=== PATIENT | female | born 1975 | race African-American/Black ===

== ENCOUNTER 2018-07-18 14:33 | Outpatient (CLI) | payer OTHER, SELFPAY ==
--- NOTE | 2018-07-18 15:02 | MMO ---
Bilateral MAMMO Bilat Screen [facility]. CLINICAL HISTORY: Patient is 43 years old and is seen for screening. The patient has the following family history of breast cancer: paternal grandmother. VIEWS: The views performed were: bilateral craniocaudal with tomosynthesis and bilateral mediolateral oblique with tomosynthesis. FILMS COMPARED: The present examination has been compared to a prior imaging study performed at [facility] on 06/02/2016. MAMMOGRAM FINDINGS: The breasts are heterogeneously dense, which could obscure a lesion on mammography. There are no suspicious masses, suspicious calcifications, or new areas of architectural distortion. IMPRESSION: THERE IS NO MAMMOGRAPHIC EVIDENCE OF MALIGNANCY. A ROUTINE FOLLOW-UP MAMMOGRAM IN 1 YEAR IS RECOMMENDED. THE RESULTS OF THIS EXAM WERE SENT TO THE PATIENT. ACR BI-RADS Category 1 - Negative MAMMOGRAPHY NOTE: 1. A negative mammogram report should not delay a biopsy if a dominant of clinically suspicious mass is present. 2. Approximately 10% to 15% of breast cancers are not detected by mammography. 3. Adenosis and dense breasts may obscure an underlying neoplasm.
== END 2018-07-18 14:34 | disposition home or self-care (01) ==
LOC: BICMAMMO 14:33
PROVIDERS: ATTEND Family Medicine
DX: Z12.31 Encounter for screening mammogram for malignant neoplasm of breast (principal); Z80.3 Family history of malignant neoplasm of breast
CPT/HCPCS: 77063; 77067

== ENCOUNTER 2018-11-17 09:40 | Emergency (ER) | payer OTHER | END 2018-11-17 11:08 | disposition home or self-care (01) | LOC: ERS 09:40 | DX: M54.42 Lumbago with sciatica, left side (principal); I10 Essential (primary) hypertension | CPT/HCPCS: 99283 ==

== ENCOUNTER 2019-10-26 06:19 | Outpatient (CLI) | payer OTHER ==
[2019-10-26 11:25] LABS: BHCG - Serum Negative (NEGATIVE); Pregs Control Background? CLEAR/WHITE (CLR/WHITE); Pregs Control Bar Appear? YES (CONTROL BAR)
[2019-10-26 11:28] LABS: Hemoglobin 11.4 g/dL (12.0-16.0); Mean Corpuscular HGB CONC 30.9 g/dL (32.0-36.0); Mean Corpuscular Volume 80.9 fL (78.0-98.0); Mean Platelet Volume 7.7 fL (7.4-10.4); Platelet Count 356 thou/uL (130-400); RBC Distribution Width 13.9 % (11.5-14.5); Red Blood Cell (RBC) Count 4.54 mill/uL (4.20-5.40); White Blood Cell (WBC) Count 7.2 thou/uL (4.8-10.8)
[2019-10-27 12:07] LABS: SARS-CoV-2 MS2 Positive; SARS-CoV-2 N Gene Negative; SARS-CoV-2 S Gene Negative; SARS-CoV-2 by NAA Not Detected (NotDetected); SARS-CoV-2 orf1ab Negative
== END 2019-10-26 06:20 | disposition home or self-care (01) ==
LOC: LABBT 06:19
PROVIDERS: ATTEND Obstetrics & Gynecology
DX: Z01.812 Encounter for preprocedural laboratory examination (principal); Z11.59 Encounter for screening for other viral diseases; N92.0 Excessive and frequent menstruation with regular cycle; N94.6 Dysmenorrhea, unspecified
CPT/HCPCS: 84703; 85027; 86850; 86900; 86901; 87635; U0003

== ENCOUNTER 2019-10-31 05:41 | Day surgery (SDC) | payer OTHER ==
[2019-10-24 09:39] VITALS: BMI 35.8
[2019-10-31] MEDS ORDERED: Gabapentin 300 MG CAP ONE (06:05)
[2019-10-31] MEDS ORDERED: Famotidine/PF 20 mg/2ml Vial ONE (06:06)
[2019-10-31] MEDS ORDERED: CeleCOXIB 100 MG CAP ONE (06:06)
[2019-10-31] MEDS ORDERED: Lidocaine 1% w/Epinephrine 1:100K 20 ML VIAL ONE (06:40)
[2019-10-31] MEDS ORDERED: Bupivacaine PF 0.5% 30 ML VIAL ONE (06:40)
[2019-10-31] MEDS ORDERED: HYDROmorphone 0.5 MG/0.5 ML SYRINGE ONE (07:18)
[2019-10-31] MEDS ORDERED: Fentanyl 100 MCG/2 ML VIAL ONE ×2 (07:18→10:33)
[2019-10-31] MEDS ORDERED: HYDROmorphone 2 MG/ML VIAL SLOW IVP PRN (09:55)
[2019-10-31] MEDS ORDERED: Meperidine HCl/PF 25 MG/ML VIAL SLOW IVP PRN (09:55)
[2019-10-31] MEDS ORDERED: Promethazine HCl 25 MG/ML VIAL SLOW IVP PRN (09:55)
[2019-10-31] MEDS ORDERED: Ondansetron HCl/PF 4 MG/2 ML Vial IVP PRN (09:55)
[2019-10-31] MEDS ORDERED: Zolpidem Tartrate 5 MG TAB PO PRN (10:08)
[2019-10-31] MEDS ORDERED: Morphine 4 MG/ML VIAL SLOW IVP PRN (10:08)
[2019-10-31] MEDS ORDERED: HYDROcodone/Acetaminophen 5/325 mg Tablet PO PRN ×2 (10:08)
[2019-10-31] MEDS ORDERED: diphenhydrAMINE 25 MG CAP PO PRN (10:08)
[2019-10-31] MEDS ORDERED: Ondansetron PF 4 MG/2 ML Vial IVP PRN (10:08)
[2019-10-31] MEDS ORDERED: Simethicone Chewable 80 MG TAB PO PRN (10:08)
[2019-10-31] MEDS ORDERED: Promethazine HCl 25 MG/ML VIAL IM PRN (10:08)
[2019-10-31] MEDS ORDERED: Bisacodyl 10 MG SUPP PR PRN (10:08)
[2019-10-31] MEDS ORDERED: Ropivacaine HCl/PF 750 ML NERVE BLCK SCH (11:00)
[2019-10-31] MEDS ORDERED: Ropivacaine 0.2% 550 ML 750 ML NERVE BLCK SCH ×2 (11:00)
[2019-10-31] MEDS ORDERED: Dexamethasone 20 MG/5 ML VIAL ONE (11:19)
[2019-10-31] MEDS ORDERED: Rocuronium Bromide 10 MG/ML (10ML VIAL) ONE (11:19)
[2019-10-31] MEDS ORDERED: Lidocaine 1% PF 5 ML VIAL ONE (11:19)
[2019-10-31] MEDS ORDERED: EPHEDRINE 25 MG/5 ML SYRINGE ONE (11:19)
[2019-10-31] MEDS ORDERED: Ondansetron PF 4 MG/2 ML Vial ONE (11:19)
[2019-10-31] MEDS ORDERED: Glycopyrrolate 0.2 MG/ML 5 ML SYRINGE ONE (11:19)
[2019-10-31] MEDS ORDERED: PHENYLEPHRINE-NS 100 MCG/ML 10 ML SYRINGE ONE (11:19)
[2019-10-31] MEDS ORDERED: PROPOFOL 200 MG/20 ML VIAL ONE (11:19)
[2019-10-31 14:54] LABS: Mean Corpuscular HGB CONC 35.3 g/dL (32.0-36.0); Mean Corpuscular Hemoglobin 28.4 pg (27.0-31.0); Mean Corpuscular Volume 80.6 fL (78.0-98.0); Mean Platelet Volume 7.6 fL (7.4-10.4); Platelet Count 325 thou/uL (130-400); Red Blood Cell (RBC) Count 4.23 mill/uL (4.20-5.40); White Blood Cell (WBC) Count 15.3 thou/uL (4.8-10.8)
--- NOTE | 2019-10-31 16:18 | OP ---
DATE OF PROCEDURE: 10/31/2019 PREOPERATIVE DIAGNOSES: 1. Menorrhagia. 2. Dysmenorrhea. 3. Failed medical management. POSTOPERATIVE DIAGNOSES: 1. Menorrhagia. 2. Dysmenorrhea. 3. Failed medical management. PROCEDURE PERFORMED: 1. Robotic-assist total laparoscopic hysterectomy with bilateral salpingectomy. 2. ON-Q pump placement. MARINE SERVICES TECHNICIAN: Jerica Barber PA-C. ANESTHESIA: GETA. URINE OUTPUT: At the start of the case, 500 mL. COMPLICATIONS: None. OPERATIVE FINDINGS: 1. Enlarged uterus with normal fallopian tubes and ovaries bilaterally. 2. Omental adhesions adhered to the anterior abdominal wall. 3. Small nonexpanding hematoma noted at the retroperitoneum medial to the descending colon. 4. Surgical sites hemostatic. PROCEDURE IN DETAIL: The patient was taken back to the OR with IV fluids running. Once she was in the OR, general anesthesia was obtained. Once the patient was asleep, she was placed in low dorsal lithotomy position. The abdomen and vagina were prepped and draped in normal fashion for gynecologic laparoscopy. The surgeons were gowned and gloved after the patient was draped. A Vazquez catheter was placed and the bladder was drained, approximately 500 mL of urine. A Alyssa syringe was placed to the tip of the catheter. An operative speculum was placed in the vagina. The cervix was easily grasped with a single-tooth tenaculum and sounded to 9 cm. A Centro manipulator was assembled with an 8 cm tip and a 4-cm cup and placed into the uterus and vagina in routine fashion for manipulation during the case. Surgeon's gloves were then changed after the speculum was removed and attention was turned to the laparoscopic portion of the case. Beginning approximately 2 cm above the umbilicus, local anesthesia was injected underneath the skin. After the skin incision was made with a scalpel, a Veress needle was placed through the skin incision and the abdomen was insufflated without difficulty. After the abdomen was insufflated, the Veress needle was removed and a 12-mm Optiview trocar was placed into the distended abdominal cavity. A laparoscope was then placed through the incision and the patient was placed in Trendelenburg position. Omental adhesions were noted draping from the midline to the left side of midline at the level of the umbilicus. No bowel was noted within these omental adhesions. The left and right lower quadrant and right upper quadrant trocar sites were placed in similar fashion after placing local anesthesia underneath the skin, making small incisions and placing the trocars under direct visualization. The omental adhesions were gently manipulated to allow for direct visualization and placement of the left lower quadrant trocar. During the manipulation of the bowel and omentum, a superficial injury to the retroperitoneum was noted and closely inspected. This area was to the left of midline above the iliac crest and above the descending colon. Dr. Sheppard was available and came in, reviewed the laparoscopic images and no injury to the bowel suspected, but a small retroperitoneum hematoma that was nonexpanding was noted. The superficial injury to the peritoneum suspected to be caused by using the Veress needle and was an inherent risk to surgery. After the area of concern was observed for a period of time without any changes, the procedure continued with placement of the robotic arms through the trocars under direct visualization. Approximately next 10 to 15 minutes of the case were used to dissect the omental adhesions off the anterior abdominal wall. Small areas of bleeding were encountered during removal of the omental adhesions and were controlled with monopolar and bipolar cautery. Once the lesions were taken down, the pelvis could be more easily viewed. Attention was turned to the laparoscopic portion of the case. Beginning at the left fallopian tube, left fallopian tube was grasped, elevated away from the pelvic sidewall, cauterized, transected, and removed from the surgical field. The left utero-ovarian ligament was cauterized and transected as well as the round ligament on the left side. The left round ligament was transected and divided into anterior and posterior leaf. This allowed the left ovary to fall away to the pelvic sidewall. The ureter was noted to be away from the planned areas of dissection. Anterior and posterior leaf of the round ligament were dissected down towards the level of the uterine artery. The bladder flap was created by further dissecting the anterior aspect of the ligament away from the cervix and dissecting the vesicocervical fascia in layers away from the planned colpotomy site. After the uterine arteries were skeletonized and cauterized on the patient's left side, attention was turned to the contralateral side. The right fallopian tube was elevated, transected, and removed. The right utero-ovarian ligament was cauterized and transected. The round ligament on the patient's left side was cauterized, transected, and divided into anterior and posterior leaf. The ureter on the patient's right side was also noted to be away from the areas of planned dissection. The anterior leaf was taken down towards the level of the cervix and the bladder was further dissected away from the planned colpotomy site. The uterine artery on the patient's right side was cauterized and transected. The colpotomy began posteriorly and was completed circumferentially. The uterine specimen was then retracted into vagina and removed. After pneumoperitoneum was re-established, the vaginal cuff and surgical pedicles were copiously irrigated and suctioned dry. The bladder was backfilled. No areas of bladder injury were suspected. The vaginal cuff was inspected and any small areas of bleeding were controlled with Bovie cauterization. The vaginal cuff was reapproximated with Stratafix suture from corner to corner. After the vaginal cuff closure was completed, the pressure was dropped down to 6 mmHg with no areas of bleeding noted. The ON-Q catheter tip was then placed under direct visualization through the anterior abdominal wall and placed into the pelvis. It was then primed and noted to be working well. Attention was then turned back to the left side of the abdomen above the pelvic brim where the hematoma was reinspected and no areas of expansion were noted. The omentum was irrigated and dried. No active areas of bleeding were noted. The robotic arms were released from the trocars. As a surgeon, I moved back to the patient's bedside after re-gowning and gloving. With the laparoscope, we closely inspected the omentum, the retroperitoneum on the patient's left side, and the pelvis and no areas of bleeding noted. A layer of Tisseel was applied over the omental edges as well as the area of suspected injury from the Veress needle. Of note, prior to application of the Tisseel, no bleeding was noted. All instruments were then removed. The counts were correct. The gas was released from the abdomen. The supraumbilical port site was closed at the fascial layer with Vicryl suture. All 4 skin incisions were closed with Monocryl suture and dressed with Dermabond dressing. The vagina was inspected with no bleeding noted. The patient was cleaned, dried, and taken out of lithotomy position. She was extubated and transferred to the recovery room in good condition. The counts were correct. The patient tolerated the procedure well. Job ID: [id number]
[2019-10-31] MEDS: Ketorolac Tromethamine 30 MG/ML VIAL IVP SCH ×2 (17:58→19:05)
[2019-11-01] MEDS: Ketorolac Tromethamine 30 MG/ML VIAL IVP SCH (00:30)
[2019-11-01] MEDS: Sodium Chloride 0.9% 1,000 ML IV SCH ×2 (02:15→06:45)
[2019-11-01] MEDS ORDERED: Ibuprofen 800 MG TAB PO SCH (06:00)
[2019-11-01 06:27] LABS: Hemoglobin 10.2 g/dL (12.0-16.0); Mean Corpuscular HGB CONC 33.5 g/dL (32.0-36.0); Mean Corpuscular Hemoglobin 26.9 pg (27.0-31.0); Mean Corpuscular Volume 80.2 fL (78.0-98.0); Mean Platelet Volume 7.6 fL (7.4-10.4); Platelet Count 305 thou/uL (130-400); RBC Distribution Width 14.1 % (11.5-14.5); Red Blood Cell (RBC) Count 3.81 mill/uL (4.20-5.40); White Blood Cell (WBC) Count 17.9 thou/uL (4.8-10.8)
[2019-11-01 08:06] VITALS: BP 110/55; TEMP 98.3
--- NOTE | 2019-11-01 08:06 | PDOC.EVN ---
Event Note - Event Note Event Note: POD1 S: doing well, minimal pain, mostly w ambulation, voiding well, no bleeding, pain controlled w meds, no NV and burping but not yet passing gas. O: VS WNL NAD A and O Nonlabored breathing mild but anticipated post op distention, NTTP, incisions CDI x 4 Audra dry A/p: POD1 sp JOHANN BS w ONQ pump placement. Reviewed w pt how she can adjust the OnQ rate up or down at home. Encouraged ambulation and plan for DC later today. Surgical findings reviewed w pt.
[2019-11-01] MEDS ORDERED: Bisoprolol Fumarate/HCTZ 10 mg/6.25 mg Tablet PO SCH (09:00)
[2019-11-01] MEDS ORDERED: Amlodipine 5 MG TAB PO SCH (09:00)
== END 2019-11-01 09:50 | disposition home or self-care (01) ==
LOC: SDC 05:41 → 3SE 10:06 → SDC 11-01 09:50
PROVIDERS: ATTEND Obstetrics & Gynecology
PROC: 0UT74ZZ Resection of Bilateral Fallopian Tubes, Percutaneous Endoscopic Approach (ICD-10-PCS; principal; 2019-11-01)
PROC: 0UT94ZZ Resection of Uterus, Percutaneous Endoscopic Approach (ICD-10-PCS; principal; 2019-11-01)
DX: N80.0 Endometriosis of uterus (principal); N88.8 Other specified noninflammatory disorders of cervix uteri; N83.8 Other noninflammatory disorders of ovary, fallopian tube and broad ligament; K66.0 Peritoneal adhesions (postprocedural) (postinfection); K66.1 Hemoperitoneum; Z79.899 Other long term (current) drug therapy
CPT/HCPCS: 36415; 85027; 88307; A4306; J0690; J1100; J1170; J1885; J2405; J2704; J2795; J3010; S0020; S0028

== ENCOUNTER 2019-11-02 17:20 | Emergency (ER) | payer OTHER | END 2019-11-02 18:43 | disposition home or self-care (01) | LOC: ERS 17:20 | DX: N99.842 Postprocedural seroma of a genitourinary system organ or structure following a genitourinary system procedure (principal); I10 Essential (primary) hypertension; Z79.899 Other long term (current) drug therapy | CPT/HCPCS: 99283 ==

== ENCOUNTER 2020-07-09 22:01 | Emergency (ER) | payer OTHER ==
[2020-07-10 00:27] LABS: #Basophils 0.1 thou/uL (0.0-0.2); #Eosinphils 0.1 thou/uL (0.0-0.7); #Lymphocytes 3.9 thou/uL (1.20-3.40); #Monocytes 0.7 thou/uL (0.11-0.59); #Neutrophils 6.2 thou/uL (1.40-6.50); %Basophils 1.3 % (0.0-1.0); %Eosinophils 1.3 % (0.0-10.0); %Lymphocytes 35.4 % (21.0-51.0); %Monocytes 6.5 % (0.0-10.0); %Neutrophils 55.4 % (42.0-75.0); Hemoglobin 12.7 g/dL (12.0-16.0); Mean Corpuscular HGB CONC 34.1 g/dL (32.0-36.0); Mean Corpuscular Hemoglobin 28.1 pg (27.0-31.0); Mean Corpuscular Volume 82.4 fL (78.0-98.0); Mean Platelet Volume 6.8 fL (7.4-10.4); Platelet Count 322 thou/uL (130-400); RBC Distribution Width 12.6 % (11.5-14.5); Red Blood Cell (RBC) Count 4.53 mill/uL (4.20-5.40); White Blood Cell (WBC) Count 11.1 thou/uL (4.8-10.8)
[2020-07-10 00:52] LABS: ALT (SGPT) 38 U/L (8-55); AST (SGOT) 26 U/L (5-34); Albumin 4.2 g/dL (3.5-5.0); Alkaline Phosphatase 102 U/L (40-110); Anion Gap 15 mmol/L (10-20); BUN (Urea Nitrogen) 9 mg/dL (7.0-18.7); Bilirubin, Total 0.6 mg/dL (0.2-1.2); Calc. Creatinine Clearance 0 mL/min (70-130); Calcium 9.7 mg/dL (7.8-10.44); Carbon Dioxide 23 mmol/L (22-29); Chloride 104 mmol/L (98-107); Globulin 3.5 g/dL (2.4-3.5); Glucose 97 mg/dL (70-105); Potassium 3.9 mmol/L (3.5-5.1); Protein, Total 7.7 g/dL (6.0-8.3); Sodium 138 mmol/L (136-145)
[2020-07-10] MEDS ORDERED: Ketorolac Tromethamine 30 MG/ML VIAL ONE (01:32)
== END 2020-07-10 01:48 | disposition home or self-care (01) ==
LOC: ERS 22:01
DX: R60.0 Localized edema (principal); Z79.899 Other long term (current) drug therapy; I10 Essential (primary) hypertension
CPT/HCPCS: 36415; 80053; 83880; 85025; 85379; 96372; J1885

== ENCOUNTER 2023-09-09 20:46 | Emergency (ER) | payer BC ==
[2023-09-09] MEDS ORDERED: Aspirin Chewable 81 MG TAB ONE (22:07)
[2023-09-09] MEDS ORDERED: Acetaminophen 500 MG TAB ONE (22:07)
[2023-09-09 23:13] LABS: #Basophils 0.07 10x3/uL (0.0-0.2); %Basophils 0.7 % (0.0-1.0); %Eosinophils 1.2 % (0.0-10.0); %Lymphocytes 39.4 % (21.0-51.0); %Monocytes 7.3 % (0.0-10.0); %Neutrophils 51.2 % (42.0-75.0); Hematocrit 40.1 % (36.0-47.0); Hemoglobin 14.1 g/dL (12.0-16.0); Mean Corpuscular HGB CONC 35.2 g/dL (32.0-36.0); Mean Corpuscular Hemoglobin 27.7 pg (27.0-31.0); Mean Corpuscular Volume 78.8 fL (78.0-98.0); Mean Platelet Volume 9.5 fL (7.4-10.4); Platelet Count 306 10x3/uL (130-400); RBC Distribution Width 12.8 % (11.5-14.5); Red Blood Cell (RBC) Count 5.09 mill/uL (4.20-5.40)
[2023-09-09 23:35] LABS: ALT (SGPT) 21 U/L (8-55); AST (SGOT) 18 U/L (5-34); Albumin 4.3 g/dL (3.5-5.0); Alkaline Phosphatase 75 U/L (40-110); Anion Gap 19 mmol/L (10-20); BUN (Urea Nitrogen) 11 mg/dL (7.0-18.7); Bilirubin, Total 0.5 mg/dL (0.2-1.2); Calc. Creatinine Clearance 0 mL/min (70-130); Carbon Dioxide 21 mmol/L (22-29); Chloride 105 mmol/L (98-107); Estimated GFR 67; Globulin 3.4 g/dL (2.4-3.5); Glucose 79 mg/dL (70-105); Lipase 13 U/L (8-78); Potassium 4.1 mmol/L (3.5-5.1); Protein, Total 7.7 g/dL (6.0-8.3); Sodium 141 mmol/L (136-145)
[2023-09-09 23:38] LABS: Digoxin Less than 0.19 ng/mL (0.8-2.0); Troponin I Less than 0.010 ng/mL (< 0.028)
== END 2023-09-10 00:12 | disposition home or self-care (01) ==
LOC: ERS 20:46
DX: R07.9 Chest pain, unspecified (principal); Z87.891 Personal history of nicotine dependence
CPT/HCPCS: 36415; 36416; 71045; 80053; 80162; 83690; 83880; 84484; 85025; 85379; 93005; 94760